=== PATIENT | female | born 1980 | race Caucasian/White ===

== ENCOUNTER → 2017-08-23 | Outpatient (CLI) | payer BC ==
--- NOTE | 2017-08-23 12:20 | NM ---
HISTORY: Right upper quadrant pain. Study: Nuclear medicine HIDA scan with ejection fraction Comparison: None. Technique: Multiple scintigraphic images of the abdomen were obtained the intravenous administration of 5.3 mCi of technetium labeled Choletec. Following distention of the gallbladder with radiotracer, 8 oz of Ensure was administered orally. An estimated gallbladder ejection fraction was calculated based on the resulting physiologic response. Findings: Homogeneous uptake of radiotracer is seen throughout the liver. The intrabiliary ductal system is ob served normally. The common hepatic and common bile duct are unremarkable with normal biliary-bowel transit. The gallbladder is observed to fill normally. After administration of Ensure, a gallbladder ejection fraction of 8.3% (normal > 35%) is observed. IMPRESSION: 1. Normal hepatobiliary imaging scan. 2. Abnormal gallbladder ejection fraction of 8.3%. Clinical correlation for gallbladder dyskinesia v ersus cholecystitis is recommended. Reported By:
== END ==
LOC: RAD 09:05
PROVIDERS: ATTEND Nurse Practitioner
DX: R10.11 Right upper quadrant pain (principal)
CPT/HCPCS: 78227; A9537